=== PATIENT | male | born 1960 | race Caucasian/White ===

== ENCOUNTER 2016-12-13 12:16 | Emergency (ER) | payer BC ==
[~2016-12-13] VITALS: Ht 172.7 cm; Wt 75.0 kg
[2016-12-13] MEDS ORDERED: COZAAR100 MG (13:18)
[2016-12-13] MEDS ORDERED: NORVASC 10MG10 MG (13:18)
[2016-12-13 13:24] LABS: BASO # 0.1 (0.0-0.2); BASO % 0.9 % (0.0-2.0); EOS # 0.2 (0.0-0.7); EOS % 2.2 % (0-4.0); GRAN # 4.3 (1.4-6.5); GRAN % 52.1 % (42.2-75.2); HEMATOCRIT 40.3 % (42.0-52.0); HEMOGLOBIN 13.9 g/dl (13.5-18.0); LYMPH # 2.7 (1.2-3.4); LYMPH % 32.6 % (20.0-51.0); MEAN CELL VOLUME 92 fl (80.0-100.0); MEAN CORPUSCULAR HEMOGLOBIN 32 pg (27.0-31.0); MEAN CORPUSCULAR HGB CONC 35 g/dl (33.0-37.0); MEAN PLATELET VOLUME 9.6 fl (7.4-10.4); MONO % 11.7 % (1.7-9.3); PLATELET COUNT 329 K/mm3 (130-400); RED BLOOD COUNT 4.38 M/mm3 (4.20-5.60); REDCELL DISTRIBUTION WIDTH-CV 12.4 % (11.5-14.5); WHITE BLOOD COUNT 8.2 K/mm3 (4.8-10.8)
[2016-12-13 13:29] LABS: ADJUSTED CALCIUM 8.9 mg/dL (8.4-10.2); ALANINE AMINOTRANSFERASE 34 U/L (21-72); ALBUMIN 4.3 gm/dL (3.5-5.0); ALKALINE PHOSPHATASE 108 U/L (50-136); ANION GAP 12 mmol/L (7-16); BILIRUBIN,TOTAL 0.6 mg/dL (0.0-1.0); BLOOD UREA NITROGEN 7 mg/dL (9-20); CALCIUM 9.1 mg/dL (8.4-10.2); CARBON DIOXIDE 24 mmol/L (22-30); CHLORIDE 99 mmol/L (98-107); CREATININE, serum 0.62 mg/dL (0.66-1.25); GLUCOSE 91 mg/dL (74-106); POTASSIUM 3.8 mmol/L (3.4-5.0); SODIUM 134 mmol/L (137-145); TOTAL PROTEIN 7.4 gm/dL (6.4-8.2)
[2016-12-13 13:30] LABS: C-REACTIVE PROTEIN < 0.5 mg/dL (0.0-0.9)
[2016-12-13 14:09] VITALS: BP 142/85; PULSE 72; TEMP 98.2
== END 2016-12-13 14:14 | disposition home or self-care (01) ==
LOC: COL.ER 12:16
PROVIDERS: Emergency Medicine
DX: G43.809 Other migraine, not intractable, without status migrainosus (principal); G40.909 Epilepsy, unspecified, not intractable, without status epilepticus; I10 Essential (primary) hypertension; F17.210 Nicotine dependence, cigarettes, uncomplicated; Z86.73 Personal history of transient ischemic attack (TIA), and cerebral infarction without residual deficits; Z87.81 Personal history of (healed) traumatic fracture; Z87.09 Personal history of other diseases of the respiratory system
CPT/HCPCS: J1170; J1200; J2405; J7030

== ENCOUNTER 2018-11-28 09:45 | Emergency (ER) | payer OTHER ==
[~2018-11-28] VITALS: Ht 172.7 cm; Wt 70.5 kg
[~2018-11-28 09:45] MED LIST: COZAAR100 MG; NORVASC 10MG10 MG
[2018-11-28 09:47] VITALS: TEMP 97.1
[2018-11-28 10:09] LABS: BASO # 0.1 (0.0-0.2); BASO % 0.7 % (0.0-2.0); EOS # 0.2 (0.0-0.7); EOS % 1.9 % (0-4.0); GRAN # 4.5 (1.4-6.5); GRAN % 54.3 % (42.2-75.2); HEMATOCRIT 42.5 % (42.0-52.0); HEMOGLOBIN 14.9 g/dl (13.5-18.0); LYMPH # 2.6 (1.2-3.4); LYMPH % 31.4 % (20.0-51.0); MEAN CELL VOLUME 92 fl (80.0-100.0); MEAN CORPUSCULAR HEMOGLOBIN 32 pg (27.0-31.0); MEAN CORPUSCULAR HGB CONC 35 g/dl (33.0-37.0); MEAN PLATELET VOLUME 9.2 fl (7.4-10.4); MONO # 0.9 (0.1-0.6); MONO % 11.2 % (1.7-9.3); PLATELET COUNT 283 K/mm3 (130-400); RED BLOOD COUNT 4.63 M/mm3 (4.20-5.60); REDCELL DISTRIBUTION WIDTH-CV 12.8 % (11.5-14.5)
[2018-11-28 10:24] LABS: ALANINE AMINOTRANSFERASE 21 U/L (21-72); ALBUMIN 4.1 gm/dL (3.5-5.0); ALKALINE PHOSPHATASE 86 U/L (50-136); ANION GAP 10 mmol/L (7-16); AST,SGOT 29 U/L (15-37); BILIRUBIN,TOTAL 1.2 mg/dL (0.0-1.0); BLOOD UREA NITROGEN 11 mg/dL (9-20); CALCIUM 9.4 mg/dL (8.4-10.2); CARBON DIOXIDE 27 mmol/L (22-30); CHLORIDE 103 mmol/L (98-107); CREATININE, serum 0.71 (0.66-1.25); GLUCOSE 116 mg/dL (74-106); SODIUM 139 mmol/L (137-145); TOTAL PROTEIN 7.1 gm/dL (6.4-8.2)
[2018-11-28 10:36] LABS: TROPONIN-I < 0.012 ng/mL (0.000-0.035)
[2018-11-28] MEDS ORDERED: ANTIVERT 25MG25 MG PO (12:59)
[2018-11-28 14:09] VITALS: BP 130/75; PULSE 58
== END 2018-11-28 14:10 | disposition home or self-care (01) ==
LOC: COL.ER 09:45
PROVIDERS: Emergency Medicine
DX: R42 Dizziness and giddiness (principal); F17.210 Nicotine dependence, cigarettes, uncomplicated
CPT/HCPCS: J1200; J2060; J2550; J7030

== ENCOUNTER 2020-01-13 15:01 | Emergency (ER) | payer SELFPAY ==
[~2020-01-13] VITALS: Ht 172.7 cm; Wt 65.9 kg
[~2020-01-13 15:01] MED LIST changes: +ANTIVERT 25MG25 MG PO
[2020-01-13 15:03] VITALS: TEMP 97.8
[2020-01-13] MEDS ORDERED: CEPHALEXIN500 M1 PO (16:16)
[2020-01-13] MEDS ORDERED: HCTZ 25MG TAB25 MG PO (16:29)
[2020-01-13] MEDS ORDERED: TOPROL XL 50MG50 MG PO (16:29)
[2020-01-13 16:40] VITALS: BP 196/98; PULSE 78
== END 2020-01-13 16:42 | disposition home or self-care (01) ==
LOC: COL.ER 15:01
DX: S51.812A Laceration without foreign body of left forearm, initial encounter (principal); W29.8XXA Contact with other powered hand tools and household machinery, initial encounter; Y92.59 Other trade areas as the place of occurrence of the external cause

== ENCOUNTER 2020-01-23 07:54 | Observation (INO) | payer BC ==
[~2020-01-23] VITALS: Ht 172.7 cm; Wt 58.1 kg
[~2020-01-23 07:54] MED LIST changes: +CEPHALEXIN500 M1 PO; +HCTZ 25MG TAB25 MG PO; +TOPROL XL 50MG50 MG PO
[2020-01-23 08:16] LABS: BASO # 0.1 (0.0-0.2); BASO % 0.7 % (0.0-2.0); EOS # 0.4 (0.0-0.7); EOS % 4.1 % (0-4.0); GRAN # 4.3 (1.4-6.5); GRAN % 45.6 % (42.2-75.2); HEMATOCRIT 43.4 % (42.0-52.0); HEMOGLOBIN 14.8 g/dl (13.5-18.0); LYMPH # 3.4 (1.2-3.4); LYMPH % 36.1 % (20.0-51.0); MEAN CELL VOLUME 91 fl (80.0-100.0); MEAN CORPUSCULAR HEMOGLOBIN 31 pg (27.0-31.0); MEAN CORPUSCULAR HGB CONC 34 g/dl (33.0-37.0); MEAN PLATELET VOLUME 9.3 fl (7.4-10.4); MONO # 1.2 (0.1-0.6); MONO % 13.2 % (1.7-9.3); PLATELET COUNT 354 K/mm3 (130-400); RED BLOOD COUNT 4.75 M/mm3 (4.20-5.60); REDCELL DISTRIBUTION WIDTH-CV 12.9 % (11.5-14.5)
[2020-01-23 08:23] LABS: ACETAMINOPHEN < 10 ug/mL (10-30); ALANINE AMINOTRANSFERASE 19 U/L (4-49); ALBUMIN 4.5 gm/dL (3.5-5.0); ALKALINE PHOSPHATASE 113 U/L (50-136); ANION GAP 8 mmol/L (7-16); AST,SGOT 29 U/L (15-37); BILIRUBIN,TOTAL 0.7 mg/dL (0.0-1.0); BLOOD UREA NITROGEN 14 mg/dL (9-20); CALCIUM 9.3 mg/dL (8.4-10.2); CARBON DIOXIDE 27 mmol/L (22-30); CHLORIDE 98 mmol/L (98-107); GLUCOSE 102 mg/dL (74-106); POTASSIUM 4.1 mmol/L (3.4-5.0); SALICYLATE < 1.0 mg/dL; SODIUM 132 mmol/L (137-145); TOTAL PROTEIN 7.8 gm/dL (6.4-8.2)
[2020-01-23 08:24] LABS: ALCOHOL(ethanol),MEDICAL < 10 mg/dL
[2020-01-23 08:39] LABS: TROPONIN-I < 0.012 ng/mL (0.000-0.035)
[2020-01-23 08:53] LABS: PROTHROMBIN TIME 10.6 SECONDS (9.7-12.8)
[2020-01-23 10:06] VITALS: BP 146/72; PULSE 50; TEMP 97.3
--- NOTE | 2020-01-23 10:13 | NUR ---
Upon arrival via w/c with Callie, c/o pain to chest at 3/10 that feels "heavy". VSS, placed on 02 at 2L even though 02 sats were 96% on RA. After 10 minutes pt states that pain is improved and heaviness resolved. Callie aware, will continue to monitor.
[2020-01-23 12:36] VITALS: BP 153/85; PULSE 54; TEMP 97.5
[2020-01-23 17:34] VITALS: BP 148/79; PULSE 53; TEMP 97.6
--- NOTE | 2020-01-23 17:55 | NUR ---
Patient had an uneventful day. Reported chest pain when first in the room, but resolved when resting in bed. VSS. A&Ox4. Denies pain and discomfort. No reported dizziness, or loss of ROM. No further needs expressed from the patient. Call light within reach
--- NOTE | 2020-01-23 19:34 | NUR ---
Resting in bed. Assessment complete. Lungs clear. Heart murmur heard. Bowels active x4. Pulses present throughout. No edema noted. INT right forearm without complications. Cut to left wrist-stitches intact. Denies pain. Denies needs. Call light in reach.
[2020-01-23 19:37] VITALS: BP 147/71; PULSE 53; TEMP 98.1
[2020-01-23 23:34] VITALS: BP 131/69; PULSE 61; TEMP 98.4
--- NOTE | 2020-01-24 02:15 | NUR ---
Resting in bed. Denies needs. Call light in reach.
[2020-01-24 03:43] VITALS: BP 151/76; PULSE 57; TEMP 98
--- NOTE | 2020-01-24 05:48 | NUR ---
Patient had uneventful night. Resting in bed this Am. Call light in reach.
--- NOTE | 2020-01-24 07:03 | NUR ---
Report given to CASSIDY Jacobs
[2020-01-24 07:11] LABS: BASO # 0.1 (0.0-0.2); BASO % 0.9 % (0.0-2.0); EOS # 0.4 (0.0-0.7); EOS % 4.2 % (0-4.0); GRAN # 4.4 (1.4-6.5); GRAN % 51.2 % (42.2-75.2); HEMATOCRIT 43.9 % (42.0-52.0); LYMPH # 2.8 (1.2-3.4); LYMPH % 32.3 % (20.0-51.0); MEAN CELL VOLUME 91 fl (80.0-100.0); MEAN CORPUSCULAR HEMOGLOBIN 31 pg (27.0-31.0); MEAN CORPUSCULAR HGB CONC 34 g/dl (33.0-37.0); MEAN PLATELET VOLUME 9.3 fl (7.4-10.4); MONO # 0.9 (0.1-0.6); MONO % 10.9 % (1.7-9.3); PLATELET COUNT 345 K/mm3 (130-400); RED BLOOD COUNT 4.82 M/mm3 (4.20-5.60); REDCELL DISTRIBUTION WIDTH-CV 12.9 % (11.5-14.5)
[2020-01-24 07:17] LABS: ALBUMIN 4.3 gm/dL (3.5-5.0); BILIRUBIN,TOTAL 0.5 mg/dL (0.0-1.0); CALCIUM 9.3 mg/dL (8.4-10.2); CHOLESTEROL RISK RATIO 3.7; CREATININE, serum 0.77 (0.66-1.25); MAGNESIUM 1.9 mg/dL (1.6-2.3); PHOSPHOROUS 3.4 mg/dL (2.5-4.5); POTASSIUM 4.3 mmol/L (3.4-5.0); TOTAL PROTEIN 7.5 gm/dL (6.4-8.2)
[2020-01-24 07:21] VITALS: BP 151/87; PULSE 57; TEMP 97.5
--- NOTE | 2020-01-24 08:41 | NUR ---
Assessment complete. Patient sitting up in bed with breakfast at this time at the bedside. Patient denies pain or discomfort at this time. Pt states that he has these weird moments when he first wakes up or goes to bed where he has to remind himself where he is, who he is, what is happening. I suggested that it may be disorientation related to waking up in an unfamiliar environment but he denied that this was the case. I assured him it would be mentioned when the hospitalist rounded and suggested that if I am unable to make it while they round on him that he mention it. expressed frustration related to poor communication and feeling that more should be done for his stenosis in his heart, stated she will be speaking to the doctor about it. Patient shows no stroke sytmptoms or deficits at this time. No other needs were expressed at this time. Call light is in reach.
--- NOTE | 2020-01-24 10:35 | NUR ---
Initial visit; Casino Worker spoke with patient's letting her know of the availability of spiritual care. She said she will let Jorge know Casino Worker visited.
[2020-01-24] MEDS ORDERED: LIPITOR 80MG80 MG PO (11:11)
[2020-01-24] MEDS ORDERED: PLAVIX 75MG TAB75 MG PO (11:11)
[2020-01-24] MEDS ORDERED: TOPROL XL 50MG50 MG PO (11:12)
[2020-01-24] MEDS ORDERED: DOXYCYCLINE 10100 MG PO (11:19)
[2020-01-24 11:31] VITALS: BP 162/75; PULSE 54; TEMP 97.5
--- NOTE | 2020-01-24 15:33 | NUR ---
Patient left the floor at this time. Discharge instructions were discussed. No further questions or concerns were expressed.
== END 2020-01-24 15:34 | disposition home or self-care (01) ==
LOC: COL.ER 07:54 → MEDICAL 08:46
PROVIDERS: Emergency Medicine; ADMIT Family Medicine
DX: I65.22 Occlusion and stenosis of left carotid artery (principal); E11.9 Type 2 diabetes mellitus without complications; I10 Essential (primary) hypertension; F17.210 Nicotine dependence, cigarettes, uncomplicated; G40.909 Epilepsy, unspecified, not intractable, without status epilepticus; A93.8 Other specified arthropod-borne viral fevers; G56.00 Carpal tunnel syndrome, unspecified upper limb; E43 Unspecified severe protein-calorie malnutrition; R63.4 Abnormal weight loss; Z79.02 Long term (current) use of antithrombotics/antiplatelets
CPT/HCPCS: A9585; Q9967

== ENCOUNTER 2020-01-28 09:55 | Emergency (ER) | payer BC ==
[~2020-01-28] VITALS: Ht 172.7 cm; Wt 57.7 kg
[~2020-01-28 09:55] MED LIST changes: +DOXYCYCLINE 10100 MG PO; +LIPITOR 80MG80 MG PO; +PLAVIX 75MG TAB75 MG PO
[2020-01-28 09:59] VITALS: TEMP 97.8
[2020-01-28 10:28] LABS: BASO # 0.1 (0.0-0.2); BASO % 0.9 % (0.0-2.0); EOS # 0.2 (0.0-0.7); EOS % 2.5 % (0-4.0); GRAN # 4.1 (1.4-6.5); GRAN % 50.8 % (42.2-75.2); HEMATOCRIT 38.2 % (42.0-52.0); HEMOGLOBIN 13.4 g/dl (13.5-18.0); LYMPH # 2.7 (1.2-3.4); LYMPH % 32.9 % (20.0-51.0); MEAN CELL VOLUME 89 fl (80.0-100.0); MEAN CORPUSCULAR HEMOGLOBIN 31 pg (27.0-31.0); MEAN CORPUSCULAR HGB CONC 35 g/dl (33.0-37.0); MEAN PLATELET VOLUME 9.6 fl (7.4-10.4); MONO % 12.3 % (1.7-9.3); PLATELET COUNT 284 K/mm3 (130-400); RED BLOOD COUNT 4.29 M/mm3 (4.20-5.60); REDCELL DISTRIBUTION WIDTH-CV 12.7 % (11.5-14.5)
[2020-01-28 10:39] LABS: ALANINE AMINOTRANSFERASE 24 U/L (4-49); ALBUMIN 4.2 gm/dL (3.5-5.0); ALKALINE PHOSPHATASE 136 U/L (50-136); ANION GAP 12 mmol/L (7-16); AST,SGOT 38 U/L (15-37); BILIRUBIN,TOTAL 0.8 mg/dL (0.0-1.0); BLOOD UREA NITROGEN 11 mg/dL (9-20); CARBON DIOXIDE 23 mmol/L (22-30); CHLORIDE 92 mmol/L (98-107); CREATININE, serum 0.64 (0.66-1.25); GLUCOSE 144 mg/dL (74-106); POTASSIUM 3.5 mmol/L (3.4-5.0); SODIUM 127 mmol/L (137-145); TOTAL PROTEIN 7.1 gm/dL (6.4-8.2)
[2020-01-28 11:04] LABS: TROPONIN-I < 0.012 ng/mL (0.000-0.035)
[2020-01-28 11:37] LABS: COLLECTION METHOD CLEAN CATCH
[2020-01-28 11:45] LABS: PH 6 (5-8); SQUAMOUS EPITHELIAL None Seen /hpf; URINE APPEARANCE Clear; URINE BACTERIA None Seen /hpf; URINE BILIRUBIN Negative (NEGATIVE); URINE BLOOD Negative (NEGATIVE); URINE COLOR Straw; URINE GLUCOSE Negative (NEGATIVE); URINE KETONE Negative (NEGATIVE); URINE LEUKOCYTE ESTERASE Negative (NEGATIVE); URINE NITRATE Negative (NEGATIVE); URINE PROTEIN(semi-quant) Negative (NEGATIVE); URINE RBC 0-2 /hpf; URINE UROBILINOGEN Negative (NEGATIVE)
[2020-01-28 14:13] VITALS: BP 185/87; PULSE 52
== END 2020-01-28 14:55 | disposition home or self-care (01) ==
LOC: COL.ER 09:55
PROVIDERS: Emergency Medicine
DX: I63.81 Other cerebral infarction due to occlusion or stenosis of small artery (principal); R42 Dizziness and giddiness; Z79.02 Long term (current) use of antithrombotics/antiplatelets
CPT/HCPCS: A9585; J7030

== ENCOUNTER 2020-01-31 11:15 | Emergency (ER) | payer BC ==
[~2020-01-31] VITALS: Ht 172.7 cm; Wt 62.3 kg
[2020-01-31 11:16] VITALS: TEMP 98.3
[2020-01-31 11:49] LABS: BASO # 0.1 (0.0-0.2); BASO % 0.5 % (0.0-2.0); EOS # 0.2 (0.0-0.7); EOS % 1.5 % (0-4.0); GRAN # 6.2 (1.4-6.5); GRAN % 59.8 % (42.2-75.2); HEMOGLOBIN 14.2 g/dl (13.5-18.0); LYMPH % 29.1 % (20.0-51.0); MEAN CELL VOLUME 91 fl (80.0-100.0); MEAN CORPUSCULAR HEMOGLOBIN 31 pg (27.0-31.0); MEAN CORPUSCULAR HGB CONC 35 g/dl (33.0-37.0); MEAN PLATELET VOLUME 9.4 fl (7.4-10.4); MONO # 0.9 (0.1-0.6); MONO % 8.7 % (1.7-9.3); PLATELET COUNT 277 K/mm3 (130-400); RED BLOOD COUNT 4.53 M/mm3 (4.20-5.60); REDCELL DISTRIBUTION WIDTH-CV 12.7 % (11.5-14.5)
[2020-01-31 12:09] LABS: ALANINE AMINOTRANSFERASE 46 U/L (4-49); ALBUMIN 4.2 gm/dL (3.5-5.0); ALKALINE PHOSPHATASE 116 U/L (50-136); ANION GAP 9 mmol/L (7-16); AST,SGOT 47 U/L (15-37); BILIRUBIN,TOTAL 0.6 mg/dL (0.0-1.0); BLOOD UREA NITROGEN 7 mg/dL (9-20); CALCIUM 9.2 mg/dL (8.4-10.2); CARBON DIOXIDE 28 mmol/L (22-30); CHLORIDE 92 mmol/L (98-107); CREATININE, serum 0.57 (0.66-1.25); GLUCOSE 118 mg/dL (74-106); SODIUM 129 mmol/L (137-145); TOTAL PROTEIN 7.3 gm/dL (6.4-8.2)
[2020-01-31 12:25] LABS: TROPONIN-I < 0.012 ng/mL (0.000-0.035)
[2020-01-31 13:06] LABS: PROLACTIN 3.5 ng/mL (3.7-17.9)
[2020-01-31 13:13] VITALS: BP 179/91; PULSE 59
== END 2020-01-31 13:14 | disposition home or self-care (01) ==
LOC: COL.ER 11:15
PROVIDERS: Emergency Medicine
DX: R42 Dizziness and giddiness (principal); R51 Headache; F17.210 Nicotine dependence, cigarettes, uncomplicated; Z79.82 Long term (current) use of aspirin; Z79.02 Long term (current) use of antithrombotics/antiplatelets; Z86.73 Personal history of transient ischemic attack (TIA), and cerebral infarction without residual deficits

== ENCOUNTER 2023-08-19 10:34 | Inpatient (IN) | payer OTHER ==
[~2023-08-19] VITALS: Ht 172.7 cm; Wt 63.5 kg
[2023-08-19] VITALS (397 sets, daily range): BP systolic 129–130; BP diastolic 73–79; PULSE 54–58; TEMP 97.7–97.9; O2SAT 92–100
[2023-08-19 10:56] LABS: BASO # 0.1 K/mm3 (0.0-0.2); BASO % 0.6 % (0.0-2.0); EOS # 0.2 K/mm3 (0.0-0.7); EOS % 1.7 % (0.0-4.0); GRAN % 55.9 % (42.2-75.2); HEMATOCRIT 42.6 % (42.0-52.0); LYMPH # 2.7 K/mm3 (1.2-3.4); LYMPH % 30.2 % (20.0-51.0); MEAN CELL VOLUME 90 fl (80.0-100.0); MEAN CORPUSCULAR HEMOGLOBIN 32 pg (27-31); MEAN CORPUSCULAR HGB CONC 35 g/dl (33.0-37.0); MEAN PLATELET VOLUME 8.6 fl (7.4-10.4); MONO % 10.7 % (1.7-9.3); PLATELET COUNT 284 K/mm3 (130-400); RED BLOOD COUNT 4.74 M/mm3 (4.20-5.60); REDCELL DISTRIBUTION WIDTH-CV 12.5 % (11.5-14.5)
[2023-08-19 11:13] LABS: ALANINE AMINOTRANSFERASE 16 U/L (0-55); ALBUMIN 4.2 gm/dL (3.4-4.8); ALKALINE PHOSPHATASE 89 U/L (40-150); ANION GAP 11 mmol/L (7-16); AST,SGOT 18 U/L (5-34); BILIRUBIN,TOTAL 0.7 mg/dL (0.2-1.2); BLOOD UREA NITROGEN 9 mg/dL (8-26); CALCIUM 9.4 mg/dL (8.4-10.2); CARBON DIOXIDE 21 mmol/L (23-31); CHLORIDE 92 mmol/L (98-107); CREATININE, serum 0.86 mg/dL (0.72-1.25); GLUCOSE 117 mg/dL (70-99); POTASSIUM 3.6 mmol/L (3.5-4.5); SODIUM 124 mmol/L (136-145); TOTAL PROTEIN 7.2 gm/dL (6.2-8.1)
[2023-08-19] MEDS ORDERED: Nitroglycerin/D5W 250 ML IV ONE (11:15)
[2023-08-19 11:22] LABS: TROPONIN-I < 0.010 ng/mL (0.00-0.033)
[2023-08-19] MEDS ORDERED: Heparin 5,000 UNITS/ML 1 ML VIAL IV ONE (11:30)
[2023-08-19] MEDS ORDERED: Heparin 5,000 UNITS/ML 1 ML VIAL IV PRN (11:30)
[2023-08-19] MEDS ORDERED: Heparin/D5W 250 ML IV SCH (11:30)
[2023-08-19 12:05] LABS: INR 0.8 (0.8-3.0); PARTIAL THROMBOPLASTIN TIME 28.7 SECONDS (26.0-37.0); PROTHROMBIN TIME 9.1 SECONDS (9.7-12.8)
[2023-08-19] MEDS ORDERED: *Potassium Replacement Protocol MC SCH (14:00)
[2023-08-19] MEDS ORDERED: Atorvastatin 40 MG TAB PO ONE (14:00)
[2023-08-19] MEDS ORDERED: COREG 25MG25 MG/TAB PO (14:12)
[2023-08-19] MEDS ORDERED: PLAVIX 75MG TAB75 MG PO (14:12)
[2023-08-19] MEDS ORDERED: REQUIP5 MG PO (14:13)
[2023-08-19] MEDS ORDERED: LOZOL1.25 MG PO (14:13)
[2023-08-19] MEDS ORDERED: ZONEGRAN50 MG PO (14:14)
[2023-08-19] MEDS ORDERED: NITROSTAT0.4 MG/TAB SL (14:14)
[2023-08-19] MEDS ORDERED: NICORETTE2 M1 PO (14:14)
[2023-08-19] MEDS ORDERED: REVATIO20 MG PO (14:15)
[2023-08-19] MEDS ORDERED: CRESTOR40 MG PO (14:15)
[2023-08-19] MEDS ORDERED: BENADRYL50 MG PO (14:16)
[2023-08-19] MEDS ORDERED: ALEVE 220MG220 MG PO (14:17)
[2023-08-19] MEDS ORDERED: Nicotine 14 MG DAILY PATCH TD SCH (15:49)
--- NOTE | 2023-08-19 19:05 | NUR ---
Received report from CASSIDY Klein.
--- NOTE | 2023-08-19 20:00 | NUR ---
Patient resting quietly in bed watching TV. Continues to receive heparin and nitro drips, see IV drip titrations. Patient reports current chest pain as 5/10. Nitro titrated according to orders. Vitals within normal limits. No further needs noted at this time.
[2023-08-19] MEDS ORDERED: rOPINIRole 1 MG TAB PO SCH (21:00)
[2023-08-19] MEDS ORDERED: Rosuvastatin 40 MG **** subs to Atorvastatin 80 MG PO SCH (21:00)
[2023-08-20] VITALS (656 sets, daily range): BP systolic 84–121; BP diastolic 48–74; PULSE 53–72; TEMP 97.6–98.1; O2SAT 80–100
--- NOTE | 2023-08-20 01:45 | NUR ---
Patient calls complaining of increased chest pain rated 8/10. Nitro currently infusing at 45mcg/min with last pressure of 101/66. Shanna notified. Orders received for PRN morphine. See EMAR.
[2023-08-20] MEDS ORDERED: Morphine 4 MG/ML VIAL IV PRN (02:00)
[2023-08-20] MEDS ORDERED: 1/2 NS 1,000 ML IV SCH ×2 (06:00→15:00)
[2023-08-20 06:18] LABS: BASO # 0.1 K/mm3 (0.0-0.2); BASO % 0.7 % (0.0-2.0); EOS # 0.2 K/mm3 (0.0-0.7); EOS % 1.4 % (0.0-4.0); GRAN # 7.5 K/mm3 (1.4-6.5); GRAN % 64.1 % (42.2-75.2); HEMOGLOBIN 14.3 g/dl (13.5-18.0); LYMPH # 2.7 K/mm3 (1.2-3.4); LYMPH % 22.6 % (20.0-51.0); MEAN CELL VOLUME 87 fl (80.0-100.0); MEAN CORPUSCULAR HEMOGLOBIN 31 pg (27-31); MEAN CORPUSCULAR HGB CONC 36 g/dl (33.0-37.0); MEAN PLATELET VOLUME 8.9 fl (7.4-10.4); MONO # 1.2 K/mm3 (0.1-0.6); MONO % 10.3 % (1.7-9.3); PLATELET COUNT 275 K/mm3 (130-400); RED BLOOD COUNT 4.62 M/mm3 (4.20-5.60); REDCELL DISTRIBUTION WIDTH-CV 12.2 % (11.5-14.5)
[2023-08-20 06:39] LABS: ALBUMIN 3.8 gm/dL (3.4-4.8); CALCIUM 9.5 mg/dL (8.4-10.2); CHOLESTEROL RISK RATIO 4.6; CREATININE, serum 0.91 mg/dL (0.72-1.25); MAGNESIUM 1.8 mg/dL (1.6-2.6); PHOSPHOROUS 3.8 mg/dL (2.3-4.7); POTASSIUM 4.7 mmol/L (3.5-4.5)
--- NOTE | 2023-08-20 07:49 | NUR ---
RECEIVED REPORT FROM GE TROTTER RN. PATIENT RESTING IN BED WITH EYES CLOSED AT THIS TIME. BED IN A LOW POSITION. CALL LIGHT WITHIN REACH.
[2023-08-20] MEDS ORDERED: Clopidogrel 75 MG TAB PO SCH (09:00)
[2023-08-20] MEDS ORDERED: Influenza Virus Vaccine, Quad '23-24 (6 MOS+) 0.5 ML SYRINGE IM SCH (09:00)
--- NOTE | 2023-08-20 09:04 | NUR ---
HEAD TO TOE ASSESSMENT COMPLETED. PATIENT ALERT AND ORIENTED. COMPLAINTS OF CHEST PAIN 8/10. PUPILS EQUAL AND REACTIVE. HEART SOUNDS REGULAR WITH S1 AND S2 NOTED. LUNG SOUNDS CLEAR BILATERALLY. BOWEL SOUNDS ACTIVE X4. PULSES PRESENT BILATERALLY IN UPPER AND LOWER EXTREMITIES. MEDICATIONS ADMINISTERED PER EMAR. PATIENT REMAINS NPO. BED IN A LOW POSITION. CALL LIGHT WITHIN REACH.
--- NOTE | 2023-08-20 11:35 | NUR ---
HEPARIN PLACED ON STANDBY @ 1130 PER CARDIOLOGY PRIOR TO PATIENT'S HEART CATH.
--- NOTE | 2023-08-20 12:13 | NUR ---
pipe out worker met with patient and his , Ivonne, to discuss discharge planning. Patient lives in [place] with his . Ivonne phone number [phone]. PCP is Dr. Mckeon, pharmacy is [facility]. No issues affording medications. DPOA-HC is Ivonne. DME is a cane. Patient reports he is independent with ADLS and can drive himself to and from appointments. Patient reports his primary insurance is the [facility] with secondary as [employer] [facility]. Patient would like to return home at time of discharge. SW notified director of search engine optimization, Halley. Discharge plan: Home
[2023-08-20] MEDS ORDERED: Nitroglycerin/D5W 250 ML IV SCH (12:30)
--- NOTE | 2023-08-20 13:21 | NUR ---
Refer to merge hemodynamic report for procedural sedation and notes
[2023-08-20] MEDS ORDERED: Bivalirudin 250 MG in NS 50 ML IV SCH (13:45)
[2023-08-20] MEDS ORDERED: fentaNYL 50 MCG/ML 2 ML VIAL IV SCH (13:55)
[2023-08-20] MEDS ORDERED: Midazolam 2 MG/2 ML VIAL IV SCH (13:56)
[2023-08-20] MEDS ORDERED: Heparin 1,000 UNITS/ML 10 ML Multi-Dose VIAL IA SCH (13:57)
[2023-08-20] MEDS ORDERED: Nitroglycerin 100 MCG/ML (Cath Lab) 10 ML VIAL IA SCH (13:58)
--- NOTE | 2023-08-20 14:18 | NUR ---
Initial visit attempt; Patient resting, Clarifying Plant Operator left card offering God's Blessings and wishing him well. Also, information regarding the availability of Spiritual Care at our hospital.
--- NOTE | 2023-08-20 14:20 | NUR ---
Pt back to ICU 7 - bedside handoff performed with CASSIDY Jain - vitals and radial access site reviewed and stable - pt's at bedside. IV lines traced and no complications.
[2023-08-20] MEDS ORDERED: rOPINIRole 1 MG TAB PO SCH (19:00)
[2023-08-20] MEDS ORDERED: Ondansetron 4 MG/2 ML VIAL IV PRN (22:30)
--- NOTE | 2023-08-20 22:55 | NUR ---
2235: PT VOMITTED UP SUPPER MOSTLY INTO TRASH CAN. CALLED FOR ZOFRAN ORDER TO ROSANNA WHO ASKED WHAT QTC WAS AT THIS TIME. QTC=44. RECVD ORDER TO GIVE ZOFRAN. VSS.
[2023-08-21] VITALS (394 sets, daily range): BP systolic 105–136; BP diastolic 67–84; PULSE 53–72; TEMP 97.7–98.1; O2SAT 69–100
[2023-08-21 04:21] LABS: BASO % 0.2 % (0.0-2.0); EOS # 0.1 K/mm3 (0.0-0.7); EOS % 1.1 % (0.0-4.0); GRAN # 6.2 K/mm3 (1.4-6.5); GRAN % 63.4 % (42.2-75.2); HEMOGLOBIN 12.7 g/dl (13.5-18.0); LYMPH # 1.9 K/mm3 (1.2-3.4); LYMPH % 19.6 % (20.0-51.0); MEAN CELL VOLUME 88 fl (80.0-100.0); MEAN CORPUSCULAR HEMOGLOBIN 31 pg (27-31); MEAN CORPUSCULAR HGB CONC 35 g/dl (33.0-37.0); MEAN PLATELET VOLUME 8.9 fl (7.4-10.4); MONO # 1.5 K/mm3 (0.1-0.6); MONO % 15.1 % (1.7-9.3); PLATELET COUNT 236 K/mm3 (130-400); REDCELL DISTRIBUTION WIDTH-CV 12.1 % (11.5-14.5)
[2023-08-21 04:40] LABS: ALBUMIN 3.5 gm/dL (3.4-4.8); CREATININE, serum 0.82 mg/dL (0.72-1.25); MAGNESIUM 1.8 mg/dL (1.6-2.6); PHOSPHOROUS 3.9 mg/dL (2.3-4.7); POTASSIUM 4.1 mmol/L (3.5-4.5)
--- NOTE | 2023-08-21 07:00 | NUR ---
Report received from CASSIDY Blanchard. Pt alert and oriented at this time. States he is not experiencing any chest pain at this time. Remain on nitro gtt at 55mcg/min; will attempt to wean down today. Pt offers no complaints. Call light in reach.
[2023-08-21] MEDS ORDERED: Ranolazine ER 500 MG TAB PO SCH (09:00)
[2023-08-21] MEDS ORDERED: Clopidogrel 75 MG TAB PO SCH (09:00)
--- NOTE | 2023-08-21 11:41 | NUR ---
Discussed when to contact the physician for signs of symptoms of complications or MA. Also reviewed risk factors for heart disease. Covered applicable modifiable risk factors including the following: tobacco cessation, HTN, hyperlipidemia, diabetes, overweight/obesity, sedentary lifestyle, and stress/depression. Patient verbalized understanding. Referral sent to [facility] with patient's permission. Patient will be using [place] insurance - so will not be scheduled until VA auth recieved. Staff will be in contact within 2 weeks from today if no auth is recieved by staff by that date. Patient Verbalized understanding. Patient and both verbalized competency navigating the [facility] [email or web address] system. patient s permission.
[2023-08-21] MEDS ORDERED: RANEXA 500MG T500 MG PO (12:24)
[2023-08-21] MEDS ORDERED: TOPROL XL 25MG25 MG PO (12:32)
[2023-08-21] MEDS ORDERED: ASPIRIN 81M81 MG/TA2 PO (12:32)
[2023-08-21] MEDS ORDERED: PLAVIX 75MG TAB75 MG PO (12:32)
[2023-08-21] MEDS ORDERED: PRINIVIL2.5 MG PO (12:34)
--- NOTE | 2023-08-21 13:35 | NUR ---
Pt discharged to home at this time; pts present during discharge. PIV removed from left forearm and right AC. Pt given discharge instructions and educations. All questions answered appropriately. Pt in possession of all belongings. Pt denies chest pain at time of discharge; instucted to return to hospital if persists.
== END 2023-08-21 13:35 | disposition home or self-care (01) | DRG 322 ==
LOC: COL.ER 10:34 → ICU 11:35
PROVIDERS: Family Medicine; ADMIT Internal Medicine
PROC: 027034Z Dilation of Coronary Artery, One Artery with Drug-eluting Intraluminal Device, Percutaneous Approach (ICD-10-PCS; principal; 2023-08-20)
PROC: 4A023N7 Measurement of Cardiac Sampling and Pressure, Left Heart, Percutaneous Approach (ICD-10-PCS; 2023-08-20)
PROC: B2111ZZ Fluoroscopy of Multiple Coronary Arteries using Low Osmolar Contrast (ICD-10-PCS; 2023-08-20)
DX: I25.110 Atherosclerotic heart disease of native coronary artery with unstable angina pectoris (principal); E87.1 Hypo-osmolality and hyponatremia; I73.9 Peripheral vascular disease, unspecified; F17.210 Nicotine dependence, cigarettes, uncomplicated; I10 Essential (primary) hypertension; E78.5 Hyperlipidemia, unspecified; I70.1 Atherosclerosis of renal artery; Z86.73 Personal history of transient ischemic attack (TIA), and cerebral infarction without residual deficits; Z79.899 Other long term (current) drug therapy; Z79.02 Long term (current) use of antithrombotics/antiplatelets
CPT/HCPCS: C1725; C1769; C1874; C1887; J0583; J1644; J2250; J2270; J2305; J2405; J3010

== ENCOUNTER 2023-10-23 19:42 | Observation (INO) | payer OTHER ==
[~2023-10-23] VITALS: Ht 20.3 cm; Wt 59.0 kg
[~2023-10-23 19:42] MED LIST changes: +ALEVE 220MG220 MG PO; +ASPIRIN 81M81 MG/TA2 PO; +BENADRYL50 MG PO; +CIPRO 500MG TA500 MG PO; +COREG 25MG25 MG/TAB PO; +CRESTOR40 MG PO; +LOZOL1.25 MG PO; +NICORETTE2 M1 PO; +NITROSTAT0.4 MG/TAB SL; +PRINIVIL2.5 MG PO; +RANEXA 500MG T500 MG PO; +REQUIP5 MG PO; +REVATIO20 MG PO; +TOPROL XL 25MG25 MG PO; +ZONEGRAN50 MG PO
[2023-10-23 21:00] VITALS: BP_SYST 165
[2023-10-23] MEDS ORDERED: NS 1,000 ML IV ONE (21:00)
[2023-10-23] MEDS ORDERED: Morphine 4 MG/ML VIAL IV ONE (21:30)
[2023-10-23] MEDS ORDERED: Ondansetron 4 MG/2 ML VIAL IV ONE (21:30)
[2023-10-23 21:32] LABS: BASO % 0.3 % (0.0-2.0); EOS % 0.3 % (0.0-4.0); GRAN # 7.9 K/mm3 (1.4-6.5); GRAN % 69.1 % (42.2-75.2); HEMATOCRIT 41.3 % (42.0-52.0); HEMOGLOBIN 14.1 g/dl (13.5-18.0); LYMPH # 2.2 K/mm3 (1.2-3.4); LYMPH % 18.9 % (20.0-51.0); MEAN CELL VOLUME 90 fl (80.0-100.0); MEAN CORPUSCULAR HEMOGLOBIN 31 pg (27-31); MEAN CORPUSCULAR HGB CONC 34 g/dl (33.0-37.0); MEAN PLATELET VOLUME 9.5 fl (7.4-10.4); MONO # 1.3 K/mm3 (0.1-0.6); PLATELET COUNT 311 K/mm3 (130-400); REDCELL DISTRIBUTION WIDTH-CV 13.2 % (11.5-14.5)
[2023-10-23 22:00] LABS: BILIRUBIN,TOTAL 0.5 mg/dL (0.2-1.2); C-REACTIVE PROTEIN 0.06 mg/dL (0.00-0.50); CALCIUM 10.1 mg/dL (8.4-10.2); POTASSIUM 3.8 mEq/L (3.5-4.5); TOTAL PROTEIN 7.2 g/dl (6.2-8.1)
[2023-10-23] MEDS ORDERED: Albuterol/Ipratropium 3 MG-0.5 MG/3 ML Neb Soln IH PRN (22:00)
[2023-10-23] MEDS ORDERED: Acetaminophen 325 MG TAB PO PRN (22:00)
[2023-10-23] MEDS ORDERED: Mag/Al Hydrox/Simeth Susp 30 ML CUP PO PRN (22:00)
[2023-10-23] MEDS ORDERED: NS 1,000 ML IV SCH (22:00)
--- NOTE | 2023-10-23 22:30 | NUR ---
ADMITTED PATIENT TO ROOM 318 FROM ED. PATIENT C/O OF 8/10 EPIGASTRIC PAIN . 2MG MORPHINE IV GIVEN. VS ARE WNL AND TELE IS NS SANTIAGO. SEIZURE PRECAUTIONS IN PLACE SCDs PLACED. ORIENTED PATIENT TO ROOM.
[2023-10-23] MEDS ORDERED: diphenhydrAMINE 50 MG CAP PO SCH ×2 (22:48→23:10)
[2023-10-23] MEDS ORDERED: Ranolazine ER 500 MG TAB PO SCH (22:48)
[2023-10-23] MEDS ORDERED: rOPINIRole 1 MG TAB PO SCH (22:49)
[2023-10-23] MEDS ORDERED: Atorvastatin 40 MG TAB PO SCH (23:15)
[2023-10-23 23:53] VITALS: BP 165/85; PULSE 51; TEMP 97.6
[2023-10-24] VITALS (7 sets, daily range): BP systolic 129–165; BP diastolic 65–76; PULSE 43–50; TEMP 97.9–98
[2023-10-24] MEDS ORDERED: Morphine 4 MG/ML VIAL IV PRN (00:15)
--- NOTE | 2023-10-24 01:03 | NUR ---
CALL PLACED TO HOSPITALIST NANCY. REQUIP ORDER IS IN UNUSUAL INCREMENTAL DOSE-10TABS OF 1MG. WILL CALL PHARMACY TO CLARIFY FORMULATION.
--- NOTE | 2023-10-24 01:05 | NUR ---
PATIENT C/O CHEST PAIN HAS SIGNIFICANT CARDIAC Hx EKG ORDERED, HOSPITALIST NOTIFIED.
--- NOTE | 2023-10-24 01:10 | NUR ---
CALL PLACED TO PHARMACY, PATIENT STATES HE TAKES 10MG REQUIP FOR RESTLESS LEG SYNDROME AND PYXIS WILL ISSUE OUT 10 TABLETS OF 1MG TABS- THIS SEEMS EXCESSIVE. PHARMACY CONFIRMED WE CARRY ONLY 1 MG TABS MAX SO IN ORDER FOR PATIENT TO GET HIS 10 MG HE WOULD INDEED NEED TO TAKE 10 TABS WE DO NOT CARRY ANYTHING HIGHER IN MGs. BOTH PHARAMCIST AND HOSPITALIST CONFIRMED THAT 10MG IS AN EXCEPTABLE DOSAGE FOR RESTLESS LEG SYNDROME.PAST MEDICAL RECORDS SHOW HE HAS TAKEN 5MG (5TABS) IN PAST WELL.
[2023-10-24 05:55] LABS: BASO % 0.4 % (0.0-2.0); EOS # 0.1 K/mm3 (0.0-0.7); EOS % 0.8 % (0.0-4.0); GRAN # 6.2 K/mm3 (1.4-6.5); GRAN % 61.2 % (42.2-75.2); HEMATOCRIT 38.4 % (42.0-52.0); LYMPH # 2.5 K/mm3 (1.2-3.4); LYMPH % 24.6 % (20.0-51.0); MEAN CELL VOLUME 91 fl (80.0-100.0); MEAN CORPUSCULAR HEMOGLOBIN 31 pg (27-31); MEAN CORPUSCULAR HGB CONC 34 g/dl (33.0-37.0); MEAN PLATELET VOLUME 9.6 fl (7.4-10.4); MONO # 1.3 K/mm3 (0.1-0.6); MONO % 12.6 % (1.7-9.3); PLATELET COUNT 280 K/mm3 (130-400); RED BLOOD COUNT 4.22 M/mm3 (4.20-5.60); REDCELL DISTRIBUTION WIDTH-CV 13.2 % (11.5-14.5)
[2023-10-24 06:25] LABS: CALCIUM 9.3 mg/dL (8.4-10.2); CREATININE, serum 0.85 mg/dL (0.72-1.25); POTASSIUM 3.7 mEq/L (3.5-4.5)
[2023-10-24] MEDS ORDERED: Nicotine 14 MG DAILY PATCH TD SCH (09:00)
[2023-10-24] MEDS ORDERED: Zonisamide 100 MG CAP PO SCH (09:00)
[2023-10-24 14:35] LABS: BASO % 0.4 % (0.0-2.0); EOS # 0.1 K/mm3 (0.0-0.7); EOS % 0.6 % (0.0-4.0); GRAN # 6.1 K/mm3 (1.4-6.5); GRAN % 60.3 % (42.2-75.2); HEMATOCRIT 41.8 % (42.0-52.0); HEMOGLOBIN 13.8 g/dl (13.5-18.0); LYMPH # 2.4 K/mm3 (1.2-3.4); LYMPH % 23.4 % (20.0-51.0); MEAN CELL VOLUME 93 fl (80.0-100.0); MEAN CORPUSCULAR HEMOGLOBIN 31 pg (27-31); MEAN CORPUSCULAR HGB CONC 33 g/dl (33.0-37.0); MEAN PLATELET VOLUME 9.5 fl (7.4-10.4); MONO # 1.5 K/mm3 (0.1-0.6); MONO % 14.8 % (1.7-9.3); PLATELET COUNT 294 K/mm3 (130-400); RED BLOOD COUNT 4.49 M/mm3 (4.20-5.60); REDCELL DISTRIBUTION WIDTH-CV 13.4 % (11.5-14.5)
--- NOTE | 2023-10-24 16:05 | NUR ---
Patient alert and oriented x4. Shift assessment complete this morning. Patient denies any more rectal bleeding since 0430, complains of general abdominal discomfort and fatigue. Dr. Caruso updated this morning. H&H re-checked and stable. Discharge orders obtained, patient needs to hold Aspirin and Plavix for three days per Dr. Guevara. Discharge instructions discussed with patient including follow-up appointments, education packets, and holding Aspirin and Plavix. Patient verbalized understanding. IV discontinued to right AC with no complications. Telemetry off. Patient escorted to 's car via ambulation by staff.
[2023-10-24] MEDS ORDERED: rOPINIRole 1 MG TAB PO SCH (21:00)
[2023-10-24] MEDS ORDERED: Rosuvastatin 20 MG **** subs to Atorvastatin 40 MG PO SCH (21:00)
== END 2023-10-24 16:00 | disposition home or self-care (01) ==
LOC: COL.ER 19:42 → MEDICAL 23:14
PROVIDERS: Emergency Medicine; Internal Medicine Gastroenterology; Physician Assistant; ADMIT Internal Medicine
DX: K92.1 Melena (principal); I25.119 Atherosclerotic heart disease of native coronary artery with unspecified angina pectoris; I10 Essential (primary) hypertension; I73.9 Peripheral vascular disease, unspecified; E78.5 Hyperlipidemia, unspecified; G40.909 Epilepsy, unspecified, not intractable, without status epilepticus; G25.81 Restless legs syndrome; F17.210 Nicotine dependence, cigarettes, uncomplicated; Z98.890 Other specified postprocedural states; Z86.73 Personal history of transient ischemic attack (TIA), and cerebral infarction without residual deficits; Z95.5 Presence of coronary angioplasty implant and graft; Z79.01 Long term (current) use of anticoagulants; Z79.899 Other long term (current) drug therapy; Z80.0 Family history of malignant neoplasm of digestive organs
CPT/HCPCS: G0378; J2270; J2405; J7030

== ENCOUNTER 2024-02-09 14:12 | Inpatient (IN) | payer OTHER ==
[~2024-02-09] VITALS: Ht 172.7 cm; Wt 55.2 kg
[2024-02-09] MEDS ORDERED: NS 500 ML IV ONE (15:15)
[2024-02-09 15:36] LABS: BASO % 0.4 % (0.0-2.0); EOS # 0.2 K/mm3 (0.0-0.7); EOS % 1.8 % (0.0-4.0); GRAN # 8.4 K/mm3 (1.4-6.5); GRAN % 75.1 % (42.2-75.2); LYMPH # 1.6 K/mm3 (1.2-3.4); MEAN CELL VOLUME 98 fl (80.0-100.0); MEAN CORPUSCULAR HGB CONC 31 g/dl (33.0-37.0); MEAN PLATELET VOLUME 8.8 fl (7.4-10.4); MONO # 0.9 K/mm3 (0.1-0.6); MONO % 7.7 % (1.7-9.3); PLATELET COUNT 380 K/mm3 (130-400); RED BLOOD COUNT 2.37 M/mm3 (4.20-5.60); REDCELL DISTRIBUTION WIDTH-CV 16.5 % (11.5-14.5)
[2024-02-09 15:50] LABS: HEMATOCRIT 23.3 % (42.0-52.0); HEMOGLOBIN 7.1 g/dl (13.5-18.0); MEAN CORPUSCULAR HEMOGLOBIN 30 pg (27-31)
[2024-02-09 16:00] LABS: ALBUMIN 2.5 g/dL (3.4-4.8); BILIRUBIN,TOTAL 0.3 mg/dL (0.2-1.2); CALCIUM 8.5 mg/dL (8.4-10.2); CREATININE, serum 0.71 mg/dL (0.72-1.25); POTASSIUM 3.8 mEq/L (3.5-4.5); TOTAL PROTEIN 6.5 g/dl (6.2-8.1)
[2024-02-09] MEDS ORDERED: NS 100 ML IV SCH (16:21)
[2024-02-09] MEDS ORDERED: Iohexol 300 - 100 ML VIAL IV ONE (16:22)
[2024-02-09] MEDS ORDERED: Cefepime 1 G in Water For Injection,Sterile 10 ML IV ONE (17:45)
[2024-02-09] MEDS ORDERED: ZOFRAN ODT4 MG PO (18:18)
[2024-02-09] MEDS ORDERED: ROXICODONE 55 MG/TAB PO (18:19)
[2024-02-09] MEDS ORDERED: FLOMAX 0.40.4 MG/CAP PO (18:19)
[2024-02-09] MEDS ORDERED: ZONEGRAN50 MG PO (18:20)
[2024-02-09] MEDS ORDERED: TYLENOL 325MG325 MG PO (18:21)
[2024-02-09] MEDS ORDERED: LIPITOR 40MG TA40 MG PO (18:21)
[2024-02-09] MEDS ORDERED: CARDIZEM CD 24240 MG PO (18:22)
[2024-02-09] MEDS ORDERED: REPATHA SU140 MG/1 M SQ (18:22)
[2024-02-09] MEDS ORDERED: FLEXERIL 1010 MG/TAB PO (18:22)
[2024-02-09] MEDS ORDERED: NEURONTIN100 MG/CAP PO (18:23)
[2024-02-09] MEDS ORDERED: Doxycycline Hyclate 100 MG in NS 150 ML IV SCH (19:45)
[2024-02-09] MEDS ORDERED: NS 1,000 ML IV ONE (19:45)
[2024-02-09] MEDS ORDERED: oxyCODONE 5 MG TAB PO PRN (19:45)
[2024-02-09] MEDS ORDERED: Acetaminophen 325 MG TAB PO PRN (19:45)
[2024-02-09] MEDS ORDERED: Ondansetron 4 MG/2 ML VIAL IV PRN (19:45)
[2024-02-09] MEDS ORDERED: cefTRIAXone 1 G in Water For Injection,Sterile 10 ML IV SCH (19:45)
[2024-02-09] MEDS ORDERED: Polyethylene Glycol 3350 17 GM PDS PO SCH (19:45)
[2024-02-09 20:10] VITALS: BP 126/76; PULSE 90; TEMP 97.6
--- NOTE | 2024-02-09 20:10 | NUR ---
PATIENT ADMITTED TO ROOM 319. VS ARE 97.6TEMP, 18RR, 126/76 AND O2 905 ON RA. PATIENT BEGAN TO DESAT TO 89%-2L NC APPLIED. O2 SAT AT 95% CURRENTLY. LT FOOT AMPUTATION SITE COVERED WITH GAUZE AND ALBERTO-CDI WITH POPITEAL PULSE PALPABLE. RT HEEL NECROTIC AREA 1CM X 1CM. LT FOOT WOUND VAC IN PLACE AND COTA CATHETER DRAININ JOSE LIQUID. TELE IN CURRENTLY NS. PATIENT DENIES PAIN. CALL LIGHT WITHIN REACH, BED ALARM ON.
--- NOTE | 2024-02-09 20:30 | NUR ---
PATIENT ADMITTED WITH WOUND VAC ON LT FOOT AND COTA. ALL FROM LT TOE AMPUTATION SURGERY ON 02/07/24.
[2024-02-09 21:00] VITALS: BP_SYST 145
[2024-02-09] MEDS ORDERED: Atorvastatin 40 MG TAB PO SCH (21:00)
[2024-02-09] MEDS ORDERED: rOPINIRole 1 MG TAB PO SCH (21:00)
[2024-02-09] MEDS ORDERED: Sennosides/Docusate 8.6-50 MG TAB PO SCH (21:00)
[2024-02-09] MEDS ORDERED: Zonisamide 100 MG CAP PO SCH (21:00)
--- NOTE | 2024-02-09 22:26 | NUR ---
REQUESTED PATIENT TO CALL TO VERIFY REQUIP DOSE. VERIFIED ON PHONE WITH THIS NURSE WITNESS- PATIENT TAKES 10MG REQUIP.
[2024-02-10] VITALS (16 sets, daily range): BP systolic 124–173; BP diastolic 72–101; PULSE 85–104; TEMP 97.5–98.5
--- NOTE | 2024-02-10 03:27 | NUR ---
TRANSFUSION COMPLETE, NO COMPLICATIONS. PATIENT RESTING PEACEFULLY. VS ARE WNL.
--- NOTE | 2024-02-10 04:30 | NUR ---
patient c/o nausea-prn zofran given.
[2024-02-10 07:17] LABS: BASO # 0.1 K/mm3 (0.0-0.2); BASO % 0.5 % (0.0-2.0); EOS # 0.3 K/mm3 (0.0-0.7); EOS % 2.4 % (0.0-4.0); GRAN # 7.7 K/mm3 (1.4-6.5); GRAN % 74.5 % (42.2-75.2); LYMPH # 1.4 K/mm3 (1.2-3.4); MEAN CELL VOLUME 94 fl (80.0-100.0); MEAN CORPUSCULAR HGB CONC 33 g/dl (33.0-37.0); MEAN PLATELET VOLUME 9.5 fl (7.4-10.4); MONO # 0.8 K/mm3 (0.1-0.6); MONO % 7.4 % (1.7-9.3); PLATELET COUNT 356 K/mm3 (130-400); RED BLOOD COUNT 2.64 M/mm3 (4.20-5.60)
[2024-02-10 07:18] LABS: HEMATOCRIT 24.9 % (42.0-52.0); HEMOGLOBIN 8.2 g/dl (13.5-18.0); MEAN CORPUSCULAR HEMOGLOBIN 31 pg (27-31)
[2024-02-10 07:32] LABS: CALCIUM 8.2 mg/dL (8.4-10.2); CREATININE, serum 0.62 mg/dL (0.72-1.25); POTASSIUM 4.6 mEq/L (3.5-4.5)
[2024-02-10] MEDS ORDERED: dilTIAZem CD (24-HR) 240 MG CAP PO SCH (09:00)
[2024-02-10] MEDS ORDERED: Clopidogrel 75 MG TAB PO SCH (09:00)
--- NOTE | 2024-02-10 09:00 | NUR ---
PATIENT ALERT AND ORIENTED X4. PATIENT REPORTS PAIN TO ABD 4/10. PATIENT ON ROOM 1L/ NC AT THIS TIME. PATIENT TELEMETRY IN PLACE. PATIENT HAS LEFT PARTIAL FOOT AMPUTATION WRAPPED WITH ALBERTO WRAPPED, PATIENT ALSO HAS A RIGHT HEEL WOUND DRAINING SCANT YELLOW DRAINAGE.LEFT FOOT VAC INPLACE. COTA DRAINING YELLOW OUTPUT. PATIENT CALL LIGHT WITHIN REACH. BED AT LOWEST POSITION.
[2024-02-10] MEDS ORDERED: Albuterol/Ipratropium 3 MG-0.5 MG/3 ML Neb Soln IH PRN (10:45)
[2024-02-10] MEDS ORDERED: [UNRECOGNIZED DRUG - REMARK] TOP SCH (10:45)
--- NOTE | 2024-02-10 10:45 | NUR ---
Initial visit: Patient thanked Insurance Marketing Specialist for looking in on him. He was very pleased to have prayer for healing and thanked Insurance Marketing Specialist for visit and for keeping him in her prayers. Insurance Marketing Specialist will follow up.
[2024-02-10] MEDS ORDERED: Methylnaltrexone 12 MG/0.6 ML VIAL SQ SCH (11:00)
[2024-02-10] MEDS ORDERED: Albuterol/Ipratropium 3 MG-0.5 MG/3 ML Neb Soln IH SCH (15:00)
--- NOTE | 2024-02-10 16:41 | NUR ---
Labor Economist met with patient to discuss discharge planning. Patient lives in [place] with his , Ivonne (ph#[phone]) and goes to the [facility] for primary care. Patient stated his medications come from the [facility]. Patient stated he has a walker and cane available at home. Patient has tried to get a wheelchair through the [facility] but it was denied. Patient stated he is normally independent with ADLS but plans to sponge bathe when he gets home. Patient is also in the process of getting set up with [facility]. Jacobo from [facility] requested clinicals. SW contacted Hospitalist to order PT/OT. Patient stated his DPOA-HC is his , Ivonne. Discharge Plan; Home with [facility]
--- NOTE | 2024-02-10 20:30 | NUR ---
UPON SHIFT ASSESSMENT, PATIENT WAS AWAKE IN BED AND AXO X4. DRESSINGS TO LOWER EXTREMITIES CDI. RT GROIN PAST SURGICAL SITE WELL APPROXIMATED AND SCABBED. RT UPPER ARM IV INFILTERATED. NEW 20 G PLACED BY SENIOR AUDITOR IN LT UPPER ARM. PATIENT STILL EXPERIENCING URINARY RETENTION-SEE NOTES. STATES HE FINALLY AHD BM THIS AFTERNOON AND IS FEELING MUCH BETTER AND DENIES CHEST PAIN. VS ARE CURRENTLY WNL AND TELE IS NS. CALL LIGHT WITHIN REACH.
--- NOTE | 2024-02-10 20:50 | NUR ---
CALL PLACED TO HOSPITALISTNANCY. PATIENT RECENT CATHETER REMOVAL UNABLE TO URINATE. BLADDER SCANNED-620MLS. TORB FOR INTERMITTANT CATHERTERIZATION GIVEN AND PARAMETERS GIVEN. .
--- NOTE | 2024-02-10 21:05 | NUR ---
PATIENT C/O EPPIGASTRIC PAIN. VS ARE WNL. BOWEL SOUNDS PRESENT. ABDOMEN SOFT, NO VISUAL PULSATIONS IN EPIGASTRIC REGION. PRN JOANNA GIVEN.
--- NOTE | 2024-02-10 21:36 | NUR ---
Intermittant catheterization complete- 700mls voided.
--- NOTE | 2024-02-10 23:05 | NUR ---
PATIENT C/O EPIGASTRIC PAIN 8/10. BOWEL SOUNDS PRESENT AND ABDOMEN SOFT. NO VISUAL PULSATIONS IN EPIGASTRIC REGION NOTED. VS ARE WNL. PRN JOANNA GIVEN.
[2024-02-11] VITALS (7 sets, daily range): BP systolic 163–189; BP diastolic 95–107; PULSE 90–111; TEMP 97.9–98.1
--- NOTE | 2024-02-11 02:56 | NUR ---
BLADDER SCANNED-727 MLs. INTERMITTANT CATHETERIZATION PERFORMED- 680MLs PALE YELLOW URINE REMOVED. PATIENT REPLIED THAT HE FELT URGE TO URINATE ON HIS OWN. STRAIGHT CATH REMOVED AND PATIENT VOIDED 50MLs INTO URINAL. HE CONTINUES TO DRIBBLE URINE WITH EFFORT.
[2024-02-11 06:31] LABS: BASO # 0.1 K/mm3 (0.0-0.2); BASO % 0.5 % (0.0-2.0); EOS # 0.2 K/mm3 (0.0-0.7); EOS % 2.1 % (0.0-4.0); GRAN # 7.4 K/mm3 (1.4-6.5); LYMPH # 1.5 K/mm3 (1.2-3.4); MEAN CELL VOLUME 91 fl (80.0-100.0); MEAN CORPUSCULAR HGB CONC 33 g/dl (33.0-37.0); MEAN PLATELET VOLUME 8.8 fl (7.4-10.4); MONO % 9.6 % (1.7-9.3); PLATELET COUNT 374 K/mm3 (130-400); RED BLOOD COUNT 2.78 M/mm3 (4.20-5.60); REDCELL DISTRIBUTION WIDTH-CV 15.4 % (11.5-14.5)
[2024-02-11 06:33] LABS: HEMATOCRIT 25.4 % (42.0-52.0); HEMOGLOBIN 8.3 g/dl (13.5-18.0); MEAN CORPUSCULAR HEMOGLOBIN 30 pg (27-31)
[2024-02-11 06:42] LABS: CALCIUM 8.5 mg/dL (8.4-10.2); CREATININE, serum 0.57 mg/dL (0.72-1.25); POTASSIUM 3.6 mEq/L (3.5-4.5)
--- NOTE | 2024-02-11 09:00 | NUR ---
PATIENT ALERT AND ORIENTED X4. PATIENT DENIES PAIN AT THIS TIME. ON ROOM AIR. TELEMETRY INPLACE.PATIENT LEFT FOOT DRESSING INPLACE AND WOUND VAC. PATIENT UNABLE TO URINATE ON HIS OWN. INTERMITTEN CATHERIZATION WAS DONE. PATIENT HAS LEFT LEG EDEMA. CALL LIGHT WITHIN REACH. BED AT LOWEST POSITON.
[2024-02-11] MEDS ORDERED: AMOXICILLIN 8751 TAB PO (09:39)
[2024-02-11] MEDS ORDERED: MIRALAX238G PO (09:39)
[2024-02-11] MEDS ORDERED: TYLENOL 325MG325 MG PO (09:40)
[2024-02-11] MEDS ORDERED: SENEXON-S 50-81 EACH PO (09:40)
[2024-02-11] MEDS ORDERED: PROAIR HFA0.09 MG/AC IH (09:42)
[2024-02-11] MEDS ORDERED: Polyethylene Glycol 3350 17 GM PDS PO ONE (09:45)
[2024-02-11] MEDS ORDERED: Methylnaltrexone 12 MG/0.6 ML VIAL SQ SCH (10:00)
--- NOTE | 2024-02-11 10:05 | NUR ---
Follow-up visit; Patient expressed happiness to see and thanked her for checking in on him again today. Jorge says he felt Sales Market Leader's prayers working last night and says he is much better today. reminded him that she would keep him in her prayers for a month and wished him good health.
[2024-02-11] MEDS ORDERED: FLOMAX 0.40.4 MG/CAP PO (10:44)
--- NOTE | 2024-02-11 12:50 | NUR ---
patient discharge given. at bedside. patient dressing changed to left heel before leaving. patient going home with frazier catheter. IV removed by student under this nurse supervision. tele d/c patient denied any questions or concerns. call light within reach. bed at lowest position.
--- NOTE | 2024-02-11 13:00 | NUR ---
patient escorted out of unit by PCT.
--- NOTE | 2024-02-11 13:49 | NUR ---
Roofing Layer contacted [facility] and faxed referral with discharge orders. VENKAT collaborated with RN about patient's need for a wheelchair. Patient advised the [facility] denied [facility] request for a wheelchair. SW contacted [facility] who has a wheelchair available for him to borrow. Patient provided with address and phone number for [facility].
== END 2024-02-11 13:30 | disposition home or self-care (01) | DRG 391 ==
LOC: COL.ER 14:12 → MEDICAL 19:33
PROVIDERS: Emergency Medicine; Physician Assistant; ADMIT Hospitalist
PROC: 30233N1 Transfusion of Nonautologous Red Blood Cells into Peripheral Vein, Percutaneous Approach (ICD-10-PCS; principal; 2024-02-10)
DX: K59.00 Constipation, unspecified (principal); J69.0 Pneumonitis due to inhalation of food and vomit; E44.0 Moderate protein-calorie malnutrition; Z68.1 Body mass index [BMI] 19.9 or less, adult; I10 Essential (primary) hypertension; D64.9 Anemia, unspecified; G40.909 Epilepsy, unspecified, not intractable, without status epilepticus; E78.5 Hyperlipidemia, unspecified; N40.0 Benign prostatic hyperplasia without lower urinary tract symptoms; I25.10 Atherosclerotic heart disease of native coronary artery without angina pectoris; G25.81 Restless legs syndrome; Z89.432 Acquired absence of left foot; Z95.5 Presence of coronary angioplasty implant and graft; Z88.8 Allergy status to other drugs, medicaments and biological substances; Z95.1 Presence of aortocoronary bypass graft; Z79.899 Other long term (current) drug therapy; Z79.82 Long term (current) use of aspirin; Z23 Encounter for immunization
CPT/HCPCS: A4314; A9284; J0692; J0696; J2212; J2405; J7030; J7040; P9016; Q9967

== ENCOUNTER 2024-02-23 08:17 | Emergency (ER) | payer OTHER ==
[~2024-02-23] VITALS: Ht 172.7 cm; Wt 57.7 kg
[~2024-02-23 08:17] MED LIST changes: +AMOXICILLIN 8751 TAB PO; +CARDIZEM CD 24240 MG PO; +FLEXERIL 1010 MG/TAB PO; +FLOMAX 0.40.4 MG/CAP PO; +LIPITOR 40MG TA40 MG PO; +MIRALAX238G PO; +NEURONTIN100 MG/CAP PO; +PROAIR HFA0.09 MG/AC IH; +REPATHA SU140 MG/1 M SQ; +ROXICODONE 55 MG/TAB PO; +SENEXON-S 50-81 EACH PO; +TYLENOL 325MG325 MG PO; +ZOFRAN ODT4 MG PO
[2024-02-23 08:27] VITALS: TEMP 97.8
[2024-02-23 09:50] VITALS: BP 185/100; PULSE 87
== END 2024-02-23 09:55 | disposition home or self-care (01) ==
LOC: COL.ER 08:17
DX: R31.9 Hematuria, unspecified (principal)